=== PATIENT | female | born 1965 | race Caucasian/White ===

== ENCOUNTER 2019-02-16 00:44 | Outpatient (CLI) | payer BC, SELFPAY ==
--- NOTE | 2019-02-16 08:00 | DI.MAMMO_ITS ---
SYMPTOM/DIAGNOSIS: SCREENING, Z12.31 MAMMOGRAMS: Mammograms were interpreted according to the usual protocol including computer analysis with CAD system, tomosynthesis and C view imaging. Comparison with prior examinations. Breast density B. No suspicious masses or microcalcifications are seen. There is no definite evidence of malignancy. IMPRESSION: Negative mammogram. Routine screening is recommended. Category I. MQSA ASSESSMENT OF FINDINGS: Negative. Category 1. Patient will receive a letter notifying them of these results. BI-RADS category B. There are scattered areas of fibroglandular density.
[2019-02-16 09:38] LABS: Calculated LDL 163; Cholesterol 246 mg/dL (50-200); HDL Cholesterol 67 mg/dL (40-60); TSH (W/Ref FT4) 0.34 uIU/mL (0.358-3.74); Triglyceride 81 mg/dL (30-150)
[2019-02-16 10:09] LABS: FREE T4 1.18 ng/dL (0.76-1.46)
== END 2019-02-16 01:04 ==
PROVIDERS: PCP Family Medicine; Visit Provider Family Medicine
DX: Z12.31 Encounter for screening mammogram for malignant neoplasm of breast (principal); E78.5 Hyperlipidemia, unspecified; R94.6 Abnormal results of thyroid function studies
CPT/HCPCS: 36415; 77063; 77067; 80061; 83721; 84439; 84443

== ENCOUNTER 2019-06-26 06:17 | Day surgery (SDC) | payer BC, SELFPAY ==
--- NOTE | 2019-06-26 06:38 | W.COLOREPORT ---
Date of service: 06/26/19 Time of Service: 07:26 Colonoscopy Report Date of procedure: 06/26/19 Pre-op diagnosis general: Colon Cancer Screening and Family history of colon cancer Post-op diagnosis procedure note: same Procedure: Colonoscopy Surgeon: Neeta Vargas Anesthesia proc note operative: other (general/ ASA 2/ Alexandra Aviles CRNA) Estimated blood loss (mL): 0 Pathology: none sent Complications: None Disposition: same day Indications: Mrs. Hanley is a pleasant 54 year old female seen in the office for a screening colonoscopy. She has a family history of colon cancer. Her last Colonoscopy was in 2012 and was normal. Risks, benefits and complications have been reviewed. Complications include but are not limited to bleeding, pain, perforation, missed small lesion/polyp, sore throat, aspiration and adverse reaction to the medications. Questions were entertained and answered to their satisfaction and they wished to proceed. No guarantees were given or implied. Prep: Miralax/Dulcolax Procedure Start Time: 07:27 Procedure End Time: 07:47 Retraction Time: 14 minutes Findings: Mild sigmoid Diverticulosis Procedure Description: After informed consent was obtained the patient was taken to the procedure room and placed in a left decubitous position. Monitors were applied and a time out was done. The patients name, date of , procedure, allergies to medications and metal in their body was reviewed. The patient was then sedated. Once sedated and comfortable a rectal exam was done. External exam was normal. Internal exam revealed a normal sphincter tone and no palpable masses. The scope was then introduced and retro-flexed. No internal hemorrhoids, polyps or masses were identified on retroflexion. The scope was then advanced to the cecum without difficulty. The TI and appendiceal orifice were identified. The prep was adequate. The scope was then slowly retracted over 14 minutes back into the rectum. There were no polyps. Mild sigmoid Diverticulosis was identified. The scope was removed and the patient was woken up and taken back to Same day surgery in stable condition. The patient tolerated the procedure well and there were no immediate complications. Follow up: The patient should follow up in 5 years unless they develop changes in bowel habits or other new gastrointestinal complaints.
[2019-06-26 06:40] VITALS: BP 129/87; PULSE 70; RESP 14; TEMP 36.4; O2SAT 99
--- NOTE | 2019-06-26 06:42 | PDOC.DSDIS_ITS ---
Discharge Plan Disposition Patient Disposition: HOME Condition: Good Discharge Details Reason For Visit: Colon Cancer Screening Attending Provider: Neeta Vargas Primary Care Provider: Marcelo Bazan Home Meds and New Rx's Prescriptions: Continued Shingrix Adjuvant Component-PF suspension 0.5 ml IM DAILY Qty: 0.5 RF: 1 clobetasol [Temovate] 30 GM cream 30 gm Topical HS PRN RF: 0 Enbrel SureClick 50 MG/1 ML pen injector 50 mg SQ weekly RF: 0 levothyroxine 175 mcg tablet 175 mcg PO DAILY Qty: 90 RF: 4 Discontinued polyethylene glycol 3350 17 gram/dose powder 238 g PO ONCE Qty: 238 RF: 0 bisacodyl [Dulcolax (bisacodyl)] 5 mg tablet,delayed release (DR/EC) 5 mg PO ONCE Qty: 4 RF: 0 Discharge Instructions Instructions: Colonoscopy (DC), Diverticulosis (DC) Additional Instructions: Findings: Mild Diverticulosis Follow up: 5 years Please call if you develop: fevers >101.5 Nausea or Vomiting Abdominal pain that is not transient DAY SURGERY UNIT POST ENDOSCOPY INSTRUCTIONS 1. Because there will be medication in your system for the next 24 hours, you m ay feel a little sleepy. Your coordination will be affected. Therefore: a. Do not drive or operate dangerous equipment for 24 hours. b. Do not drink alcohol beverages for 24 hours (not even beer). c. Plan to go home and rest for the day. 2. Generally there are no restrictions on your activity after a day or so has gone by, but you may feel a bit fatigued for a few days. 3 After you arrive home you may have a light meal and return to a normal diet as you can tolerate it without feeling sick to your stomach. 4. After surgery, you may feel pain or discomfort. This should be only transient, but if it persists please contact your doctor. 5. If there are any questions regarding the findings of your procedure, please feel free to contact your doctor. 6. If you are unable to contact your doctor with a problem, contact the hospital at [phone]. 7. Continue all your regular medications unless directed otherwise. I understand the above instructions and have no questions. Signature of Patient or Responsible Adult Escort Date/Time Name of Responsible Adult Escort Signature of Nurse Date/Time Activity:: Activity as Tolerated Diet:: High Fiber diet Discharge Orders Discharge Orders: Discharge Order (Routine); Ordered 06/26/19 Ordered By: Neeta Vargas DS: Diagnosis Discharge Diagnosis (1) S/P colonoscopy: Status: Acute (2) Diverticulosis: Status: Acute
[2019-06-26] MEDS: Lactated Ringers 1,000 ML 80 ML IV (07:03)
[2019-06-26] MEDS: Sodium Citrate 30 ML CUP (07:20)
[2019-06-26 08:10] VITALS: BP 135/75; PULSE 68; RESP 14; TEMP 36.5; O2SAT 95
== END 2019-06-26 08:30 | disposition home or self-care (01) ==
PROVIDERS: PCP Family Medicine; Visit Provider Surgery
PROC: 0DJD8ZZ Inspection of Lower Intestinal Tract, Via Natural or Artificial Opening Endoscopic (ICD-10-PCS; CPT 45378; principal; 2019-06-26 07:30)
DX: Z12.11 Encounter for screening for malignant neoplasm of colon (principal); K57.30 Diverticulosis of large intestine without perforation or abscess without bleeding; Z80.0 Family history of malignant neoplasm of digestive organs
CPT/HCPCS: 45378

== ENCOUNTER 2020-04-10 22:30 | Outpatient (REF) | payer BC, SELFPAY ==
[2020-04-10 22:55] LABS: Calculated LDL 164 mg/dL (<100); Cholesterol 252 mg/dL (<200); Glucose 99 mg/dL (74-106); HDL Cholesterol 66 mg/dL (40-60); TSH (W/Ref FT4) 5.02 uIU/mL (0.36-3.74); Triglyceride 113 mg/dL (<150)
[2020-04-10 23:17] LABS: FREE T4 0.96 ng/dL (0.76-1.46)
== END 2020-04-10 22:50 ==
LOC: LBN 22:30
PROVIDERS: PCP Family Medicine; Visit Provider Family Medicine
DX: R73.9 Hyperglycemia, unspecified (principal); E78.5 Hyperlipidemia, unspecified; E03.9 Hypothyroidism, unspecified
CPT/HCPCS: 80061; 82947; 84439; 84443

== ENCOUNTER 2021-05-02 18:04 | Emergency (ER) | payer BC, SELFPAY | END 2021-05-02 18:18 | disposition other institution (70) | LOC: ER 05-03 06:51 | PROVIDERS: PCP Family Medicine | DX: Z53.21 Procedure and treatment not carried out due to patient leaving prior to being seen by health care provider (principal) ==

== ENCOUNTER 2021-07-09 09:37 | Outpatient (CLI) | payer BC, SELFPAY ==
[2021-07-09 13:10] LABS: Calculated LDL 159 mg/dL (<100); Cholesterol 264 mg/dL (<200); Glucose 108 mg/dL (74-106); HDL Cholesterol 68 mg/dL (40-60); TSH (W/Ref FT4) 0.49 uIU/mL (0.36-3.74); Triglyceride 189 mg/dL (<150)
== END 2021-07-09 09:38 | disposition home or self-care (01) ==
LOC: LOS 09:37
PROVIDERS: PCP Family Medicine; Referring Provider Family Medicine; Visit Provider Family Medicine
DX: E78.5 Hyperlipidemia, unspecified (principal); E03.9 Hypothyroidism, unspecified; R73.9 Hyperglycemia, unspecified
CPT/HCPCS: 36415; 80061; 82947; 84443

== ENCOUNTER 2021-07-09 12:45 | Outpatient (REF) | payer BC, SELFPAY ==
--- NOTE | 2021-07-09 09:25 | PAPFT_PTH ---
PATIENT: Anny Hanley LOC: [facility] U#:[id number] AGE/SX: 56/F ROOM: RE07/09/[address]: Marcelo Bazan MD : 1965 BED: DIS: 07/09/2021 SPEC #: [id number] RECD: 07/09/21 12:50 STATUS: SYED REEric #: [id number] YA: 07/09/21 09:[address]: Marcelo Bazan DEPT: [facility], [facility] Cytology RECD BY: Telma Shi Tissues: 1 - CX/ENDOCX FOR PAP SMEARS Procedures: PAP THIN PREP/UVM Screening HPV DNA PROBE Comments: [id number]
== END 2021-07-09 12:46 | disposition home or self-care (01) ==
LOC: LBN 12:45
PROVIDERS: PCP Family Medicine; Visit Provider Family Medicine
DX: Z12.4 Encounter for screening for malignant neoplasm of cervix (principal); Z11.51 Encounter for screening for human papillomavirus (HPV)
CPT/HCPCS: 88142; 87624

== ENCOUNTER 2021-07-18 02:32 | Outpatient (CLI) | payer BC, SELFPAY ==
--- NOTE | 2021-07-18 11:45 | DI.MAMMO_ITS ---
Exam(s) MAMMO SCREENING EXAM: MAMMO SCREENING CLINICAL HISTORY: screening,z12.39 TECHNIQUE: Mammograms were interpreted according to the usual protocol including computer analysis w Paper[employer] CAD system, tomosynthesis and C-view imaging. COMPARISON: 2013 through 2018 FINDINGS: The breasts are composed of scattered fibroglandular densities, Breast Density category B. No suspicious masses or suspicious microcalcifications are seen. Vascular calcifications are noted. No skin thickening or abnormal axillary lymph nodes are seen. There has been no significant change from prior exams. IMPRESSION: BI-RADS Category 1, Negative mammogram Yearly screening mammography is recommended. Breast Density - Category B, scattered fibroglandular densities. A negative radiographic report should not delay biopsy if a dominant or clinically suspicious mass is present. Up to ten percent of cancers are not identified on mammography. A negative report may reinforce clinical impression. Adenosis and dense breasts may obscure an underlying neoplasm. False positive reports average 6 to 10%. Patient will receive a letter notifying them of these results.
== END 2021-07-18 02:52 ==
PROVIDERS: PCP Family Medicine; Visit Provider Family Medicine
DX: Z12.31 Encounter for screening mammogram for malignant neoplasm of breast (principal)
CPT/HCPCS: 77063; 77067

== ENCOUNTER 2021-10-09 02:24 | Outpatient (CLI) | payer BC, SELFPAY ==
--- NOTE | 2021-10-09 08:30 | DI.DEXA_ITS ---
Exam(s) XR DEXA BONE DENSITY W/WO MABEL EXAM: XR DEXA BONE DENSITY W/WO MABEL CLINICAL HISTORY: screening for osteoporosis in postmenopausal woman,z78.0, no fractures TECHNIQUE: COMPARISON: No exams were available for comparison FINDINGS: Lateral Spine Image: Unremarkable. No compression deformities identified. Left hip: Total T-Score: 0.3 Total Z-Score: 1.0 T- and Z-scores: Within normal limits. Lumbar Spine: Total T-Score: -0.4 Total Z-Score: 0.7 T- and Z-scores: Within normal limits. IMPRESSION: No evidence of osteoporosis.
== END 2021-10-09 02:44 ==
PROVIDERS: PCP Family Medicine; Visit Provider Family Medicine
DX: Z13.820 Encounter for screening for osteoporosis; Z78.0 Asymptomatic menopausal state
CPT/HCPCS: 77080

== ENCOUNTER 2021-11-28 12:54 | Outpatient (REF) | payer BC, SELFPAY ==
--- NOTE | 2021-11-28 11:07 | SKI_PTH ---
PATIENT: Anny Hanley LOC: [facility] U#:[id number] AGE/SX: 56/F ROOM: RE11/28/[address]: JACKSON Pena : 1965 BED: DIS: 11/28/2021 SPEC #: [id number] RECD: 11/28/21 13:01 STATUS: SYED REEric #: [id number] YA: 11/28/21 11:[address]: Radha Maguire DEPT: Surgical Specimen RECD BY: Telma Shi ENTERED: 11/28/21 13:02 SP TYPE: SHANON GRAJEDA DR: Marcelo Bazan MD Tissues: 1 - SKIN BIOPSY(SHAVE/PUNCH) Procedures: SKIN LEVEL 4 Comments: [id number]
== END 2021-11-28 12:55 | disposition home or self-care (01) ==
LOC: LBN 12:54
PROVIDERS: PCP Family Medicine; Visit Provider Physical Therapy Assistant
DX: L82.1 Other seborrheic keratosis (principal)
CPT/HCPCS: 88305

== ENCOUNTER 2022-01-27 16:34 | Outpatient (CLI) | payer BC, SELFPAY ==
[2022-01-27 15:33] LABS: CREATININE 0.9 mg/dL (0.55-1.02)
== END 2022-01-27 16:35 | disposition home or self-care (01) ==
LOC: LBO 16:36
PROVIDERS: PCP Family Medicine; Visit Provider Family Medicine
DX: I10 Essential (primary) hypertension (principal)
CPT/HCPCS: 36415; 82565

== ENCOUNTER 2022-08-27 02:52 | Outpatient (CLI) | payer BC, SELFPAY ==
[2022-08-27 13:36] LABS: TSH (W/Ref FT4) 0.47 uIU/mL (0.36-3.74)
== END 2022-08-27 02:53 | disposition home or self-care (01) ==
LOC: LBO 02:52
PROVIDERS: PCP Family Medicine; Visit Provider Family Medicine
DX: E03.9 Hypothyroidism, unspecified (principal)
CPT/HCPCS: 36415; 84443

== ENCOUNTER 2022-10-08 02:25 | Outpatient (CLI) | payer BC, SELFPAY ==
[2022-10-08 09:05] LABS: Abs Immature Grans 0.01 10^3/uL (0.0-0.06); Absolute Basophil Count 0.05 10^3/uL (0.0-0.2); Absolute Eosinophil Count 0.19 10^3/uL (0.0-0.7); Absolute Lymphocyte Count 1.49 10^3/uL (1.2-3.4); Absolute Monocyte Count 0.44 10^3/uL (0.1-0.8); Absolute Neutrophil Count 3.28 10^3/uL (1.2-6.7); Basophils % 0.9; Eosinophils % 3.5; HCT 39.5 % (36.0-46.0); HGB 12.8 g/dL (11.2-15.7); Immature Grans % 0.2; Lymphocytes % 27.3; MCH 27.8 pg (27.0-33.0); MCHC 32.4 % (32.0-36.0); MCV 86 fL (80-95); MPV 8.9 fL (8.0-11.0); Monocytes % 8.1; Platelet Count 297 10^3/uL (130-400); RDW 15.7 % (11.7-14.6); RDW-SD 49.4 fL; WBC 5.46 10^3/uL (4.4-10.8)
[2022-10-08 09:07] LABS: ESR 29 mm/hr (0-30)
[2022-10-08 09:20] LABS: Calculated LDL 178 mg/dL (<100); Cholesterol 279 mg/dL (<200); HDL Cholesterol 89 mg/dL (40-60); Triglyceride 61 mg/dL (<150)
[2022-10-08 09:21] LABS: ALT 37 U/L (14-59); AST 28 U/L (15-37); Albumin 3.8 g/dL (3.4-5.0); Alkaline Phosphatase 77 U/L (46-116); Bilirubin, Total 0.3 mg/dL (0.2-1.0); CREATININE 1.1 mg/dL (0.55-1.02); Estimated GFR 58.97 (mL/min/1.73m2); Total Protein 8.2 g/dL (6.4-8.2)
[2022-10-08 09:26] LABS: Hemoglobin A1C 5.9 % (<5.7)
[2022-10-08 09:29] LABS: Bilirubin, Direct 0.1 mg/dL (0.0-0.2); C-Reactive Protein 0.86 mg/dL (0.0-0.3)
== END 2022-10-08 02:26 | disposition home or self-care (01) ==
PROVIDERS: PCP Family Medicine; Visit Provider Internal Medicine
DX: E78.5 Hyperlipidemia, unspecified (principal); R73.9 Hyperglycemia, unspecified; L40.50 Arthropathic psoriasis, unspecified; M19.90 Unspecified osteoarthritis, unspecified site; Z79.899 Other long term (current) drug therapy; Z51.81 Encounter for therapeutic drug level monitoring
CPT/HCPCS: 36415; 80061; 80076; 85652; 82565; 83036; 85025; 86140

== ENCOUNTER 2022-11-07 09:28 | Emergency (ER) | payer BC, SELFPAY ==
[2022-11-07 09:33] VITALS: BP 142/81; PULSE 71; RESP 18; TEMP 36.9; O2SAT 97
--- NOTE | 2022-11-07 09:45 | DI.RAD_ITS ---
Exam(s) XR ANKLE RT COMPLETE EXAM: XR ANKLE RT COMPLETE CLINICAL HISTORY: lateral ankle pain, twisted with swelling. TECHNIQUE: 2D digital imaging was performed of the right ankle. Three images were obtained. AP, la teral and oblique views were obtained. COMPARISON: No exams were available for comparison FINDINGS: BONES: No definite acute fracture or dislocation. No bony destructive lesion is seen. Degenerative c hanges are seen at the tarsometatarsal joints. JOINTS: The ankle mortise is normally aligned. There may be a joint effusion. SOFT TISSUE: Normal. IMPRESSION: No definite acute fracture or dislocation. If symptoms persist a follow-up examination in 10-14 days may be obtained for re-evaluation. DATA REPOSITORY: RADIATION DOSE DELIVERED:
--- NOTE | 2022-11-07 10:16 | DI.VRAD_ITS ---
PROCEDURE INFORMATION: Exam: XR Right Ankle Exam date and time: 11/07/2022 9:59 AM Age: 57 years old Clinical indication: Right; Patient HX: Lateral ankle pain, twisted w/ swelling TECHNIQUE: Imaging protocol: Radiologic exam of the right ankle. Views: 3 or more views. COMPARISON: No relevant prior studies available. FINDINGS: Bones/joints: Subtle cortical irregularity of distal fibula with tiny adjacent bony density. No dislocation. Ankle mortise is congruent. Ankle joint effusion. Small plantar calcaneal enthesophyte. Moderate midfoot degenerative change. Soft tissues: Ankle swelling. IMPRESSION: Lateral malleolar avulsion injury/fracture. Dictated and Authenticated by: Aftab [place] MD. Ordering:KRYSTA Hollis MD
--- NOTE | 2022-11-07 10:43 | W.ED.GENAD ---
Discharge Plan Disposition Patient Disposition: Home Discharge Details Clinical Impression: Fibula fracture, Sprain Primary Care Provider: Marcelo Bazan ED Provider: Telma Izaguirre Home Meds and New Rx's Prescriptions: New oxycodone 5 mg capsule 5 mg PO TID PRNQty: 6 0RF Continued urea 40 % cream 1 applic topical .COMPLEX PRN Rx Instructions: 1 applic topically QOD PRN; clobetasol 0.025 % cream 1 applic topical DAILY PRN Wegovy 0.25 mg/0.5 mL pen injector 0.25 mg subcut QWEEK Qty: 2 0RF Rx Instructions: administer weeks 1 through 4 of therapy Wegovy 0.5 mg/0.5 mL pen injector 0.5 mg subcut QWEEK Qty: 2 0RF Rx Instructions: administer weeks 5 through 8 of therapy Wegovy 1 mg/0.5 mL pen injector 1 mg subcut QWEEK Qty: 2 0RF Rx Instructions: administer weeks 9 through 12 of therapy Enbrel SureClick 50 MG/1 ML pen injector 50 mg SQ weekly Patient Comments: 08-30-17 pt reports that she is currently not taking this med. hb 02/01/18 no longer taking. si levothyroxine 175 mcg tablet 175 mcg PO DAILY Qty: 90 0RF Discharge Instructions Instructions: Leg Fracture (ED) Additional Instructions: Ice, elevate, no weightbearing until you are cleared by Ortho Wear your boot Return earlier with worsening pain, changes in strength or sensation, or with any new or worsening complaints I am writing you a prescription for oxycodone, this is an addictive medication and you should not operate your vehicle for 8 hours after taking and Referrals: Marcelo Bazan MD [Primary Care Provider] - 1 day Discharge Data Discharge Date/Time-TO BE ENTERED AT DEPARTURE: 11/07/22 11:04 Medical Decision Making Patient presents with right lateral ankle pain X-ray shows evidence of small avulsion to fibula on the right ankle per radiology interpretation my review Placed in boot and supplied with crutches Orthopedic referral supplied Return precautions reviewed and patient expressed understanding Small amount of opiate analgesia with risk of addiction reviewed Medical Records Medical records reviewed: Yes I reviewed the patient's medical records. Lab Data Lab results reviewed: Yes I reviewed the patient's lab results. HPI General Date/Time Provider Initiated Documentation: 11/07/22 09:50. HPI Narrative: 57-year-old female presents with reports of right ankle pain after twisting her ankle. She denies any additional injuries. Denies paresthesias Related Data Home Medications Medication Instructions Recorded Confirmed etanercept 50 mg/mL (1 mL) 50 mg SQ weekly 11/28/14 11/07/22 subcutaneous pen injector (Enbrel SureClick) levothyroxine 175 mcg tablet 175 mcg PO DAILY #90 tab-caps 08/22/22 11/07/22 clobetasol 0.025 % topical cream 1 applic topical DAILY PRN 09/30/22 11/07/22 semaglutide (weight loss) 0.25 0.25 mg (0.5 mL) subcut QWEEK #2 mL 09/30/22 09/30/22 mg/0.5 mL subcutaneous pen injector (Wegovy) semaglutide (weight loss) 0.5 0.5 mg (0.5 mL) subcut QWEEK #2 mL 09/30/22 11/07/22 mg/0.5 mL subcutaneous pen injector (Wegovy) semaglutide (weight loss) 1 mg/0.5 1 mg (0.5 mL) subcut QWEEK #2 mL 09/30/22 09/30/22 mL subcutaneous pen injector (Wegovy) urea 40 % topical cream 1 applic topical .COMPLEX PRN 09/30/22 11/07/22 oxycodone 5 mg capsule 5 mg PO TID PRN #6 caps 11/07/22 Previous Rx's Medication Instructions Recorded levothyroxine 175 mcg tablet 175 mcg PO DAILY #90 tab-caps 08/22/22 semaglutide (weight loss) 0.25 0.25 mg (0.5 mL) subcut QWEEK #2 mL 09/30/22 mg/0.5 mL subcutaneous pen injector (Wegovy) semaglutide (weight loss) 0.5 0.5 mg (0.5 mL) subcut QWEEK #2 mL 09/30/22 mg/0.5 mL subcutaneous pen injector (Wegovy) semaglutide (weight loss) 1 mg/0.5 1 mg (0.5 mL) subcut QWEEK #2 mL 09/30/22 mL subcutaneous pen injector (WKS [employer]) oxycodone 5 mg capsule 5 mg PO TID PRN #6 caps 11/07/22 Allergies Allergy/AdvReac Type Severity Reaction Status Date / Time No Known Allergies Allergy Verified 11/07/22 09:37 General Stated Complaint: Orthopedic ANABEL: 4 PFSH All Active Problems Fibula fracture (Acute) Sprain (Acute) Obesity (Chronic) Sebaceous cyst (Acute) Diverticulosis (Acute) mild sigmoid diverticulosis Synovial cyst of left knee (Acute 12/07/17) Osteoarthritis of left knee (Acute 12/07/17) Intradermal nevus (Acute 11/09/14) 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 Maternal Grandfather , 55 Colon cancer Paternal Grandfather , 80 Stomach cancer Maternal Grandmother , 89 Alzheimer disease Paternal Grandmother , 80+ Graves disease Diabetes Heart disease Son No problems noted. Son No problems noted. Family history Graves disease Psoriasis Social History (Updated 09/30/22 @ 16:34 by Aliyah Gruber) Smoking/Tobacco Use Status: Never Smoking risk assessment performed?: Yes Alcohol Intake: current Alcohol Intake frequency: a few times a month Alcohol type: beer, wine and hard liquor Drug use: Never Substance use type: does not use Caregiver/Support person: No Household members: spouse Housing: house Communication Needs: None Do you need help understanding health information?: Never Pets and animals: No Sexually active: Yes Do you think of yourself as: straight/heterosexual Current gender identity: female What is your relationship status?: How often do you talk on the phone with friends or family?: twice per week How often do you get together with friends or relatives?: twice per week How often do you attend roman catholic or sabianism services?: 1-3 times per year Do you belong to any clubs or organized social groups?: yes Panel score (0-1 are the most socially isolated patients): 3 What type of physical activity do you participate in: walking Duration: 30-45 minutes/day Frequency: 1-2 times per week Selma/Caodaism: Protestant Special selma needs: No Seatbelt use: always Helmet use: Yes Drive intox or ride w/intox truss driver helper: No Do you feel safe at home: Yes Do you feel safe in your relationship?: Yes Exam Extrem Other: Right lateral ankle pain, swelling noted, no tenderness to right knee or right foot Neurovascularly intact Course Vital Signs Vital signs: Vital Signs Temperature 36.9 C 11/07/22 09:33 Pulse 71 11/07/22 09:33 Respiratory Rate 18 11/07/22 09:33 Blood Pressure 142/81 H 11/07/22 09:33 Pulse Oximetry 97 11/07/22 09:33 Temperature 36.9 C 11/07/22 09:33 Temperature Source Oral 11/07/22 09:33 Pulse 71 11/07/22 09:33 Respiratory Rate 18 11/07/22 09:33 Respiratory Effort Normal, Non-Labored 11/07/22 09:36 Blood Pressure 142/81 H 11/07/22 09:33 Blood Pressure Position Sitting 11/07/22 09:33 Pulse Oximetry 97 11/07/22 09:33 Oxygen Delivery Method Room Air 11/07/22 09:33 Oxygen Flow Rate 0 11/07/22 09:33 Pain Level 6 11/07/22 09:39 PAWSS Have you Been Recently Intoxicated or Drunk Within the Last 30 days?: No Have you Ever Experienced Previous Episodes of Alcohol Withdrawal?: No Have you ever Experienced Withdrawal Seizures?: No Have you ever Experienced Delirium Tremens(DT)s?: No Have you ever undergone Alcohol Rehabilitation Treatment (i.e, inpt ot outpatient treatment programs)?: No Have you ever Experienced Blackouts?: No Have you ever Combined Alcohol with other Downers within the last 90 days?: No Have you ever Combined Alcohol with any other Substance of Abuse during the last 90 days?: No Positive Blood Alcohol level on Presentation? [PCS.BAL]: No Evidence of Increased Autonomic Activity (i.e. HR>120, tremor, sweating, agitation, nausea)?: No Result: 0
== END 2022-11-07 11:04 | disposition home or self-care (01) ==
PROVIDERS: Emergency Provider Physician Assistant; PCP Family Medicine
DX: S82.491A Other fracture of shaft of right fibula, initial encounter for closed fracture (principal); X50.1XXA Overexertion from prolonged static or awkward postures, initial encounter
CPT/HCPCS: 29515; 99283; 73610; 99284

== ENCOUNTER 2023-10-06 09:40 | Outpatient (CLI) | payer BC, SELFPAY ==
[2023-10-06 13:18] LABS: Hemoglobin A1C 5.2 % (<5.7)
[2023-10-06 13:20] LABS: Calculated LDL 153 mg/dL (<100); Cholesterol 243 mg/dL (<200); HDL Cholesterol 78 mg/dL (40-60); TSH (W/Ref FT4) 0.01 uIU/mL (0.36-3.74); Triglyceride 64 mg/dL (<150)
[2023-10-06 13:37] LABS: FREE T4 1.26 ng/dL (0.76-1.46)
== END 2023-10-06 09:41 | disposition home or self-care (01) ==
LOC: LOS 09:41 → LBN 13:08 → LOS 13:15
PROVIDERS: PCP Family Medicine; Referring Provider Family Medicine; Visit Provider Family Medicine
DX: E78.5 Hyperlipidemia, unspecified (principal); E11.51 Type 2 diabetes mellitus with diabetic peripheral angiopathy without gangrene; E03.9 Hypothyroidism, unspecified
CPT/HCPCS: 36415; 80061; 83036; 84439; 84443

== ENCOUNTER 2023-10-06 13:16 | Outpatient (REF) | payer BC, SELFPAY ==
--- NOTE | 2023-10-05 10:15 | PAPFT_PTH ---
PATIENT: Anny Hanley LOC: [facility] U#:[id number] AGE/SX: 58/F ROOM: RE10/06/[address]: Marcelo Bazan MD : 1965 BED: DIS: 10/06/2023 SPEC #: [id number] RECD: 10/06/23 13:19 STATUS: SYED REEric #: [id number] YA: 10/05/23 10:[address]: Marcelo Bazan DEPT: [facility] Cytology RECD BY: Telma Shi Tissues: 1 - CX/ENDOCX FOR PAP SMEARS Procedures: PAP THIN PREP/UVM Screening Comments: [id number]
== END 2023-10-06 13:17 | disposition home or self-care (01) ==
LOC: LBN 13:16
PROVIDERS: PCP Family Medicine; Visit Provider Family Medicine
DX: Z12.4 Encounter for screening for malignant neoplasm of cervix (principal)
CPT/HCPCS: 88142

== ENCOUNTER → 2023-10-11 02:17 | Outpatient (CLI) | payer BC, SELFPAY ==
--- NOTE | 2023-10-11 07:43 | DI.MAMMO_ITS ---
Exam(s) MAMMO SCREENING EXAM: MAMMO SCREENING CLINICAL HISTORY: screening.Z12.39 TECHNIQUE: Bilateral full field digital CC and MLO mammographic images were obtained with 3D tomosyn thesis and utilizing computer aided detection (CAD). COMPARISON: Available for comparison. FINDINGS: Masses/Architectural Distortion: None seen. Microcalcifications: No suspicious pleomorphic-type are seen. Skin Thickening/Nipple Retraction: None. IMPRESSION: 1. No significant interval change with no specific features of malignancy noted. 2. Unless there is more urgent need, screening mammography is recommended, as per [employer] guidelines. BI-RADS Category 1 - Negative Breast Density - Category B - Scattered areas of fibroglandular density Breast density category C or D implies that the patient has dense breast tissue. Dense breast tissue is very common and is not abnormal but dense breast tissue can make it harder to find cancer on a ma mmogram. Also, dense breast tissue may increase their breast cancer risk. This information about the result of the mammogram report was provided to the patient to raise their awareness. Use this report when you speak with the patient about their risks for breast cancer, which includes their family hist ory. At that time, you may recommend for more screening tests (Ultrasound or MRI) as they might be us eful based on their risk. A negative radiographic report should not delay biopsy if a dominant or clinically suspicious mass is present. Up to ten percent of cancers are not identified on mammography. A negative report may reinforce clinical impression. Adenosis and dense breasts may obscure an underlying neoplasm. False positive reports average 6 to 10%. Patient will receive a letter notifying them of these results.
== END ==
PROVIDERS: PCP Family Medicine; Visit Provider Family Medicine
DX: Z12.31 Encounter for screening mammogram for malignant neoplasm of breast (principal)
CPT/HCPCS: 77063; 77067

== ENCOUNTER 2024-07-14 09:06 | Day surgery (SDC) | payer BC, SELFPAY ==
--- NOTE | 2024-07-14 08:48 | HPE_ITS ---
History of Present Illness Narrative: Patient is here today for colonoscopy for CRC screening.??? They completed a bowel prep with just a clear yellow residual effluent.? They not having any chest pain or shortness of breath, currently.? They are not experiencing any fever or chills.? They deny any productive cough or upper respiratory tract infection signs or symptoms.? They are not having abdominal pain, or nausea and vomiting.? They have not had any changes in medications, past medical history or past surgical history since previously being seen in the office. They have not had any accidents or have been in the ER since the clinic pre-operative evaluation. ??I reviewed the procedure with the patient today, including risks and benefits of the procedure, and what they could expect at home for recovery.? All questions are answered to the patient?s satisfaction today, and they are stable to proceed with the proposed procedure. The patient is here for Colonoscopy pre-op. Her last screening was in 2019, which was unremarkable. She reports a family history of colon cancer in her father and maternal grandfather. She has not had any bowel habit changes. -Discussed colonoscopy bowel prep as well as the procedure. Discussed possible complications of the procedure to include bleeding, pain, perforation, missed small lesion/polyp, sore throat, aspiration and adverse reaction to the medications. Questions were answered to patient?s satisfaction. No guarantees were implied or given. Anesthesia: general (without airway) Previous surgical intolerances: None Previous surgical complications: None Pulmonary risk factors: None PFT's: None Planned procedure: Yes Sleep apnea risks: No Can climb one flight of stairs (12-13 steps) in less than 30 seconds without stopping and without symptoms: Yes The surgery proposed for this patient is: Low risk Active cardiac conditions: None ECHO: None Stress Test: None Active risk factors: None ASA (acetylsalicylic acid):No Beta blockers: No Anti-coagulation: N/A 59 y/o female with history of hypothyroidism, obesity, graves disease, GERD and hiatal hernia presents for colonoscopy screening pre-op. Her last screening was in 2019, which was unremarkable. She reports a family history of colon cancer in her father and maternal grandfather. She denies any changes in bowel habits including bloody or black tarry stools, abdominal pain, diarrhea or constipation. She denies constitutional symptoms. She denies chest pain, palpitations, dyspnea or dyspnea with exertion. She denies prior history or family history of adverse reactions or complications with anesthesia. The patient denies any history of stroke, CA, seizures, bleeding or clotting disorders. She denies having any implanted metal in her body. [facility] All Active Problems Screening for colon cancer (Acute) Obesity (Chronic) Sebaceous cyst (Acute) Diverticulosis (Acute) mild sigmoid diverticulosis Synovial cyst of left knee (Acute 12/07/17) Osteoarthritis of left knee (Acute 12/07/17) Intradermal nevus (Acute 11/09/14) DR. KLEIN Graves' disease (Acute 01/16/09) Arthritis (Acute) PSORIATIC on enbrel Arthritis of right hip (Chronic) Gastro-esophageal reflux disease without esophagitis (Acute) Hiatal hernia (Chronic) History of hysteroscopy (Acute) D&C Medical History Hypothyroidism Nasal septum ulceration Throat fullness Surgical History H/O colonoscopy 07/01- no polyps S/P colonoscopy 2012- Normal Family History Mother , 75 Diabetes TYPE II Essential hypertension Pancreatic cancer Father , 79 Esophageal cancer Colon cancer Sister No problems noted. Maternal Grandfather , 55 Colon cancer Paternal Grandfather , 80 Stomach cancer Maternal Grandmother , 89 Alzheimer disease Paternal Grandmother , 80+ Graves disease Diabetes Heart disease Son No problems noted. Son No problems noted. Family history Graves disease Psoriasis Social History Smoking/Tobacco Use Status: Never Smoking risk assessment performed?: Yes Alcohol Intake: current Alcohol Intake frequency: a few times a month Alcohol type: beer, wine and hard liquor Drug use: Never Substance use type: does not use Caregiver/Support person: No Household members: spouse Housing: house Communication Needs: None Do you need help understanding health information?: Never Pets and animals: No Sexually active: Yes Do you think of yourself as: straight/heterosexual Current gender identity: female What is your relationship status?: How often do you talk on the phone with friends or family?: twice per week How often do you get together with friends or relatives?: twice per week How often do you attend confucianist or cheondoism services?: 1-3 times per year Do you belong to any clubs or organized social groups?: yes Panel score (0-1 are the most socially isolated patients): 3 What type of physical activity do you participate in: walking Duration: 30-45 minutes/day Frequency: 1-2 times per week Selma/Orthodoxy: Confucianism Special selma needs: No Seatbelt use: always Helmet use: Yes Drive intox or ride w/intox transit bus driver: No Do you feel safe at home: Yes Do you feel safe in your relationship?: Yes Meds Allergies and Home Medications Allergies Allergy/AdvReac Type Severity Reaction Status Date / Time No Known Allergies Allergy Verified 07/11/24 15:44 Home Medications ?Medication ?Instructions ?Recorded ?Confirmed ?Type etanercept 50 mg/mL (1 mL) 50 mg SQ weekly 11/28/14 07/11/24 History subcutaneous pen injector (Margaret Palm) urea 40 % topical cream 1 applic topical .COMPLEX PRN 09/30/22 07/11/24 History levothyroxine 175 mcg tablet 175 mcg PO DAILY #90 tab-caps 11/25/23 07/11/24 Rx semaglutide (weight loss) 2.4 2.4 mg (0.75 mL) subcut QWEEK #3 mL 06/14/24 07/11/24 Rx mg/0.75 mL subcutaneous pen injector (Hector) bisacodyl 5 mg tablet,delayed 5 mg PO ONCE #4 tabs 06/15/24 07/11/24 Rx release (Dulcolax (bisacodyl)) polyethylene glycol 3350 17 17 g PO ONCE #238 grams 06/15/24 07/11/24 Rx gram/dose oral powder
[2024-07-14 09:16] VITALS: BP 134/84; PULSE 78; RESP 16; TEMP 36.5; O2SAT 99
--- NOTE | 2024-07-14 10:25 | W.ANESPRE ---
General Info Date of Service Date Performed: 07/14/24 Height: 5 ft 6 in Weight: 91.3 kg Body Mass Index (BMI): 32.5 Surgical Procedure: Operation Date: 07/14/24 10:20 Proposed Procedure Side Surgeon kyle Polk, DO Meds Allergies and Home Medications Allergies Allergy/AdvReac Type Severity Reaction Status Date / Time No Known Allergies Allergy Verified 07/14/24 09:21 Home Medication ?Medication ?Instructions ?Recorded etanercept 50 mg/mL (1 mL) 50 mg SQ weekly 11/28/14 subcutaneous pen injector (Enbrel SureClick) urea 40 % topical cream 1 applic topical .COMPLEX PRN 09/30/22 levothyroxine 175 mcg tablet 175 mcg PO DAILY #90 tab-caps 11/25/23 semaglutide (weight loss) 2.4 2.4 mg (0.75 mL) subcut QWEEK #3 mL 06/14/24 mg/0.75 mL subcutaneous pen injector (Wegovy) bisacodyl 5 mg tablet,delayed 5 mg PO ONCE #4 tabs 06/15/24 release (Dulcolax (bisacodyl)) polyethylene glycol 3350 17 17 g PO ONCE #238 grams 06/15/24 gram/dose oral powder Current Visit Medications: Current Medications Generic Name Dose Route Start Last Admin Trade Name Freq PRN Reason Stop Dose Admin Hyoscyamine Sulfate 0.125 mg 07/14/24 01:25 Hyoscyamine 0.125 Mg Sl/Oral/Chew SL 08/13/24 01:24 DIRECTED PRN Ringer's Solution 500 mls @ 80 mls/hr 07/14/24 06:00 IV 08/12/24 23:59 INFUSION [facility] IV Miscellaneous Supplies 1 each 07/14/24 06:00 Iv Access IV 08/12/24 23:59 DIRECTED CATALINO Ondansetron HCl 4 mg 07/14/24 01:25 Ondansetron 4 Mg/2 Ml Vial IVP 08/13/24 01:24 Q4H PRN PRN Nausea / Vomiting Sodium Chloride 0 ml 07/14/24 06:00 Normal Saline Flush 10 Ml Syr IV 08/12/24 23:59 PRN PRN Sodium Chloride 0 ml 07/14/24 06:00 Normal Saline 10 Ml Vial IJ 08/12/24 23:59 DIRECTED PRN Sterile Water 0 ml 07/14/24 06:00 Water,Injection,Sterile 10 Ml Vial IJ 08/12/24 23:59 DIRECTED PRN PFSH Active Problems Active Problems: Problem Status Onset Code Screening for colon cancer Acute Z12.11 Obesity Chronic E66.9 Sebaceous cyst Acute L72.3 Diverticulosis Acute K57.90 Synovial cyst of left knee Acute 12/07/17 M71.22 Osteoarthritis of left knee Acute 12/07/17 M17.12 Intradermal nevus Acute 11/09/14 D23.9 Graves' disease Acute 01/16/09 E05.00 Arthritis Acute M19.90 Arthritis of right hip Chronic M16.11 Gastro-esophageal reflux disease without esophagitis Acute K21.9 Hiatal hernia Chronic K44.9 History of hysteroscopy Acute Z98.890 Medical History Medical History Hypothyroidism Nasal septum ulceration Throat fullness Surgical History Surgical History H/O colonoscopy 07/01- no polyps S/P colonoscopy 2012- Normal Tobacco Smoking/Tobacco Use Status: Never Passive smoking exposure: No Alcohol Alcohol Intake: current Alcohol intake frequency: a few times a month Alcohol type: beer, wine and hard liquor Substance Use Substance use: Never Substance use type: does not use Vital Signs and Lab Results Vital Signs Most Recent Vital Signs in EMR: Most Recent Vital Signs Temp Pulse Resp BP Pulse Ox 36.5 C 78 16 134/84 99 07/14/24 09:16 07/14/24 09:16 07/14/24 09:16 07/14/24 09:16 07/14/24 09:16 Lab Results Blood Type / Crossmatch: No Data to Display Complete Blood Count: No Data to Display Complete Metabolic Panel: No Data to Display Liver Function Panel: No Data to Display Coagulation Panel: No Data to Display Cardiac Panel: No Data to Display Arterial Blood Gas: No Data to Display Venous Blood Gas: No Data to Display Pancreas Panel: No Data to Display Thyroid Panel: No Data to Display Infectious Disease: No Data to Display Blood Cultures: No Data to Display Toxicology Panel: No Data to Display Anesthesia Assessment and Plan Anesthesia History Personal History: No History of Anesthesia Complications Family History: No Family History of Anesthesia Complications Exercise Tolerance Exercise Tolerance: Metabolic Equivalents>4 Pertinent Negatives Pertinent Negatives: No Symptoms of GERD Cardiac & Pulmonary Exam Cardiac Exam: Normal S1/S2 Heart Sounds Pulmonary Exam: Clear Bilateral Breath Sounds Implantable Cardiac Device Does patient have a Pacemaker or an ICD?: No Airway Exam Known Difficult Airway: No Mallampati Class: 2 Mouth Opening: Normal (> 3cm) Thyromental Distance: Greater than 3 cm Neck Range of Motion: Full ROM Neck Circumference: Normal Teeth Condition: Normal Dentition ASA Classification ASA Score: ASA 2 Emergency Case?: No NPO Status NPO Status: NPO Clears >2 hours, Solids >8 hours Anesthesia Plan Resuscitation Status: Full Code Anesthesia Technique: General Anesthesia Airway Planned: Natural Airway Monitors Used: Standard Monitors
[2024-07-14 10:26] VITALS: BMI 32.5
[2024-07-14] MEDS: Normal Saline Flush 10 ML SYR IV (10:33)
[2024-07-14 11:04] VITALS: BP 107/65; PULSE 85; RESP 16; TEMP 36.1; O2SAT 99
--- NOTE | 2024-07-14 11:10 | W.ANESPOSTOP ---
Postoperative Evaluation Date, Time and Location Date Performed: 07/14/24 Time Performed: 11:10 Patient Location: Day Surgery Unit Vital Signs Most Recent Imported Vital Signs: Most Recent Vital Signs Temp Pulse Resp BP Pulse Ox 36.5 C 78 16 134/84 99 07/14/24 09:16 07/14/24 09:16 07/14/24 09:16 07/14/24 09:16 07/14/24 09:16 Pain Score Most Recent Pain Score: Most Recent Pain Score Pain Level 0 07/14/24 09:16 Assessment Mental Status: Awake (Alert & Oriented to Patient Baseline) Airway and Respiratory Function: Patent airway with normal (patient baseline) respiratory exam Cardiovascular Function: Hemodynamically Stable Hydration Status: Adequately Hydrated Nausea & Vomiting: No Nausea or Vomiting Pain: Pt. Denies Any Pain Peripheral Nerve Block: Patient did not receive a nerve block
--- NOTE | 2024-07-14 11:19 | COLE_ITS ---
Date of service: 07/14/24 Time of Service: 11:19 Colonoscopy Report Date of procedure: 07/14/24 Pre-op diagnosis general: crc screening Post-op diagnosis procedure note: other (I. hemorrhoidal tags ) Surgeon: Cassie Polk Anesthesia Type: General:No Airway Estimated blood loss (mL): 0 Pathology: none sent Complications: None Disposition: same day Procedure Description: After informed consent was obtained, explaining risks of the procedure, including but not limits to: bleeding, infections, complications of anesthesia, perforations (which may require antibiotics and /or surgery and stay in the hospital), and abdominal pain/cramping. The patient was taken to the procedure room and placed in a left decubitous position. Monitors were applied and a time out was done. The patients name, date of , procedure, allergies to medications and metal in their body was reviewed. The patient was then sedated. Once sedated and comfortable a rectal exam was done. External exam was normal. Internal exam revealed a normal sphincter tone and no palpable masses. The prostate []. The previously lubricated Olympus scope was then introduced (see RN notes for scope number) and retrofelexed. [] internal hemorrhoids were identified. The scope was then advanced to the cecum without difficulty. The TI and appendiceal orifice were identified. The scope was then slowly retracted over [] minutes back into the rectum. Polyps: []. Diverticula: []. The mucosa is pink and healthy w/ a normal vascular pattern. The scope was removed, and the patient was woken up and taken back to Same day surgery in stable condition. The patient tolerated the procedure well and there were no immediate complications. Follow up: The patient should follow up in [] years, unless they develop changes in bowel habits or other new gastrointestinal complaints. [place] Bowel Prep [place] Bowel Prep Right Colon: 3 Left Colon: 3 Transverse Colon: 3 Total Score: 9
--- NOTE | 2024-07-14 11:25 | PDOC.DSDIS_ITS ---
Date of service: 07/14/24 Time of Service: 11:26 Discharge Plan Disposition Patient Disposition: Home Condition: Good Discharge Details Reason For Visit: Colon cancer screening Attending Provider: Cassie Polk Primary Care Provider: Marcelo Bazan Home Meds and New Rx's Prescriptions: Continued urea 40 % cream 1 applic topical .COMPLEX PRN Rx Instructions: 1 applic topically QOD PRN; Enbrel SureClick 50 MG/1 ML pen injector 50 mg SQ weekly Patient Comments: 08-30-17 pt reports that she is currently not taking this med. hb 02/01/18 no longer taking. si levothyroxine 175 mcg tablet 175 mcg PO DAILY Qty: 90 3RF Wegovy 2.4 mg/0.75 mL pen injector 2.4 mg subcut QWEEK Qty: 3 5RF Rx Instructions: start after 1.7 mg dose finishes Discontinued bisacodyl [Dulcolax (bisacodyl)] 5 mg tablet,delayed release (DR/EC) 5 mg PO ONCE Qty: 4 0RF Rx Instructions: Take per colonoscopy instructions provided by ordering providers office polyethylene glycol 3350 17 gram/dose powder 17 g PO ONCE Qty: 238 0RF Rx Instructions: Take per colonoscopy instructions provided by ordering providers office Discharge Instructions Additional Instructions: DSU Colonoscopy Post- Op Instructions Instructions for Everyone who is given Anesthesia: For your safety, please do the following for the next twenty-four (24) hours: *Do Not operate a motor vehicle (car, truck, motorcycle, etc.) *Do Not drink alcoholic beverages or use any recreational drugs for the first 24 hours or while taking pain medications. The medications in your body may have a reaction that can be dangerous. *Do Not make any important decisions or sign any important papers. Findings: Normal colonoscopy Follow up: Repeat in 10 years time Of course, you should continue to have a yearly physical exam including a rectal exam. If you should ever notice any pain or difficulty having a bowel movement, blood in the stool, unexplained weight loss, or change in your bowel habits, please contact your health provider. 1. No lifting over 20 pounds or strenuous activity for the first 24 hours after your procedure. After 24 hours there are no restrictions on your activity but you may feel fatigued for a few days. 2. After you arrive home you may have a light meal and return to your normal diet as you can tolerate it without feeling sick to your stomach. 3. You may have a bloated, gaseous feeling in your belly (abdomen) after a colonoscopy. Passing gas and belching will help. Walking or lying down on your left side with your knees flexed may relieve the discomfort. Call the office at [phone] (Office) or [phone] (Hospital) right away if you notice any of the following: a.Vomiting of blood or ?coffee ground stools?. b.Rectal bleeding 1Tbsp, blood clots or continuous bleeding. c.Severe belly (abdominal) pain. d.A hard distended belly (abdomen) and an inability to pass gas. 4. Please don?t expect to have a normal BM (bowel movement) for 2-3 days after your procedure. 5. If there are questions regarding the findings of your procedure, please contact your doctor 6. If you are unable to contact your doctor with a problem, contact the hospital at [phone]. 7. Continue all your regular medications unless directed otherwise. I understand the above instructions and have no questions. Signature of Patient or Adult Escort Name of Responsible Adult Escort Signature of Nurse Date/Time Stand Alone Forms: Anesthesia Discharge Inst., Colonoscopy Post Instructions, Johanny Mcmahan (DSU) Activity:: See above Diet:: See above Discharge Orders Discharge Orders: Discharge Order (Routine); Ordered 07/14/24 Ordered By: Cassie Polk DS: Diagnosis Discharge Diagnosis (1) Diverticulosis: Status: Acute (2) Screening for colon cancer: Status: Acute Asessment and Plan: The patient is seen and examined after their colonoscopy.? The patient has been able to pass gas.? They are not having abdominal pain.? They have been able to tolerate liquids and a snack.? They do not have any nausea or vomiting.? They are not having any chest pain or shortness of breath.??? They are not having any rectal bleeding. Their vital signs have been stable-see nursing notes. We discussed findings during their colonoscopy, and any biopsies that were done/polyps that were removed. The patient will be sent a letter with any biopsy results, and when to repeat the colonoscopy.-see discharge instructions. Patient was given explicit instructions to follow-up regarding colonoscopy-refer to discharge instructions.? We reviewed resumption of medications. Patient verbalized understanding and discharged in stable and satisfactory condition- See nursing notes.
[2024-07-14 11:28] VITALS: BP 122/87; PULSE 74; RESP 16; TEMP 36.1; O2SAT 99
== END 2024-07-14 11:44 | disposition home or self-care (01) ==
PROVIDERS: PCP Family Medicine; Visit Provider Surgery
PROC: 0DJD8ZZ Inspection of Lower Intestinal Tract, Via Natural or Artificial Opening Endoscopic (ICD-10-PCS; CPT 45378; principal; 2024-07-14 10:15)
DX: K57.30 Diverticulosis of large intestine without perforation or abscess without bleeding (principal); Z12.11 Encounter for screening for malignant neoplasm of colon; Z80.0 Family history of malignant neoplasm of digestive organs
CPT/HCPCS: 45378; J2704

== ENCOUNTER 2024-10-26 08:21 | Outpatient (CLI) | payer OTHER, SELFPAY ==
[2024-10-26 12:45] LABS: CREATININE 0.9 mg/dL (0.55-1.02); Calculated LDL 141 mg/dL (<100); Cholesterol 233 mg/dL (<200); HDL Cholesterol 82 mg/dL (40-60); TSH (W/Ref FT4) 0.01 uIU/mL (0.36-3.74); Triglyceride 54 mg/dL (<150)
[2024-10-26 13:04] LABS: FREE T4 1.41 ng/dL (0.76-1.46)
[2024-10-28 12:49] LABS: Lipoprotein (a) 10 nmol/L (<75)
== END 2024-10-26 08:22 | disposition home or self-care (01) ==
LOC: LOS 08:21
PROVIDERS: PCP Family Medicine; Referring Provider Family Medicine; Visit Provider Family Medicine
DX: E78.5 Hyperlipidemia, unspecified (principal); I10 Essential (primary) hypertension; E03.9 Hypothyroidism, unspecified; Z23 Encounter for immunization
CPT/HCPCS: 36415; 80061; 83695; 82565; 84439; 84443

== ENCOUNTER 2025-03-30 10:31 | Outpatient (CLI) | payer OTHER, SELFPAY ==
--- NOTE | 2025-03-30 10:00 | DI.RAD_ITS ---
Exam(s) XR CERVICAL SPINE COMP 4-5V EXAM: XR CERVICAL SPINE COMP 4-5V CLINICAL HISTORY: Chronic neck pain worsening M54.2 cervicalgia. TECHNIQUE: 2D digital imaging was performed. COMPARISON: No exams were available for comparison FINDINGS: Five views No evidence of fracture, listhesis, nor offset of the spinal laminar line. There is no prevertebral soft tissue swelling. There is chronic disc space narrowing and anterior osseous lipping at C6-7 level. There also Luschka joint osteophytes at this left. Milder disc space narrowing at C5-6 level. There are mild facet joint degenerative changes. IMPRESSION: Chronic degenerative disc disease at C6-7 level. DATA REPOSITORY: RADIATION DOSE DELIVERED:
== END 2025-03-30 10:51 ==
LOC: DI 10:31
PROVIDERS: PCP Family Medicine; Visit Provider Nurse Practitioner Family
DX: M50.023 Cervical disc disorder at C6-C7 level with myelopathy (principal)
CPT/HCPCS: 72050